=== PATIENT | female | born 1985 | race Caucasian/White ===

== ENCOUNTER 2019-11-25 06:39 | Emergency (ER) | payer OTHER ==
[2019-11-25 06:44] VITALS: BP 144/86; RESP 16; TEMP 97.8
--- NOTE | 2019-11-25 06:56 | ED ---
Extremity Problem HPI - General Chief complaint: Extremity Problem,Nontraumatic Stated complaint: RT arm pain Time Seen by Provider: 11/25/19 06:44 Source: patient, RN notes reviewed Mode of arrival: ambulatory Limitations: physical limitation - History of Present Illness Initial comments: This a 34-year-old female presents emergency Department chief complaint of right arm pain, swelling. Patient states that this started yesterday. She states it's warm to touch denies any paresthesias no weakness. Patient does admit that she had some any inject drugs in her right arm. Patient states that this started after this he said infections in the past similar to this. She has NO KNOWN DRUG ALLERGIES no history of MRSA or VRE. She denies known fever, chills, chest pain or shortness of breath. - Related Data Previous Rx's Medication Instructions Recorded Clindamycin HCl [Cleocin] 300 mg PO Q6H #40 cap 03/19/16 Cephalexin [Keflex] 500 mg PO Q6HR #40 cap 11/25/19 Sulfamethox-Tmp 800-160Mg [Bactrim 1 each PO Q12HR #20 tab 11/25/19 Ds] Allergies Allergy/AdvReac Type Severity Reaction Status Date / Time No Known Allergies Allergy Verified 11/25/19 06:44 Review of Systems ROS Statement: Those systems with pertinent positive or pertinent negative responses have been documented in the HPI. ROS Other: All systems not noted in ROS Statement are negative. Past Medical History Past Medical History: No Reported History History of Any Multi-Drug Resistant Organisms: None Reported Past Surgical History: Section Past Psychological History: No Psychological Hx Reported Smoking Status: Current every day smoker Past Alcohol Use History: Rare Past Drug Use History: Marijuana, Methamphetamine General Exam Limitations: no limitations General appearance: alert, in no apparent distress Head exam: Present: atraumatic, normocephalic, normal inspection Neck exam: Present: normal inspection. Absent: tenderness, meningismus, lymphadenopathy Respiratory exam: Present: normal lung sounds bilaterally. Absent: respiratory distress, wheezes, rales, rhonchi, stridor Cardiovascular Exam: Present: regular rate (Heart rate was 88), normal rhythm, normal heart sounds. Absent: systolic murmur, diastolic murmur, rubs, gallop, clicks Extremities exam: Present: other (Right forearm there is an erythema, tenderness with palpation and increased warmth with palpation neurovascular intact equal strength full range of motion radial pulses equal) Neurological exam: Present: alert, oriented X3, CN II-XII intact Course Vital Signs 11/25/19 06:42 Temperature 97.8 F Pulse Rate 117 H Respiratory 16 Rate Blood Pressure 144/86 O2 Sat by Pulse 95 Oximetry Medical Decision Making - Medical Decision Making 34-year-old female presented for right arm pain. Patient has right arm cellulitis secondary to IV drug use. Patient will be started on antibiotics with close follow-up return parameters were discussed. Disposition Clinical Impression: Right arm cellulitis Disposition: HOME SELF-CARE Condition: Stable Instructions (If sedation given, give patient instructions): Cellulitis (ED) Additional Instructions: Please return to the Emergency Department if symptoms worsen or any other concerns. Prescriptions: Sulfamethox-Tmp 800-160Mg [Bactrim Ds] 1 each PO Q12HR #20 tab Cephalexin [Keflex] 500 mg PO Q6HR #40 cap Is patient prescribed a controlled substance at d/c from ED?: No Referrals: None,Stated [Primary Care Provider] - 1-2 days Time of Disposition: 06:55
[2019-11-25 07:07] VITALS: PULSE 103
== END 2019-11-25 07:06 | disposition home or self-care (01) ==
LOC: EC 06:39
DX: L03.113 Cellulitis of right upper limb (principal); F17.200 Nicotine dependence, unspecified, uncomplicated
CPT/HCPCS: 99283